=== PATIENT | female | born 1975 | race Caucasian/White ===

== ENCOUNTER → 2018-01-03 | Outpatient (CLI) | payer OTHER ==
[2016-02-18 05:00] VITALS: BMI 4747.1
[~2018-01-03] MED LIST: AMOX-556 PO; AMOX-559 PO; CYA1000 PO; DOCU240C67 PO; FLUT16SP19 NS; IBUP800T37 PO; LEVO1TAB29 PO; LEVO1TAB48 PO; LORA-802 PO; Lanolin TP; MECL-81 PO; ONDA8TAB98 PO; PER PO; PREN-127 PO
[2018-01-03 13:43] LABS: PLATELET COUNT, AUTOMATED 222 K/uL (150-450)
[2018-01-03 14:05] LABS: LDL CHOLESTEROL 78 mg/dl
== END ==
LOC: LAB 13:10
PROVIDERS: ATTEND Emergency Medicine
DX: R20.8 Other disturbances of skin sensation (principal); E66.9 Obesity, unspecified
CPT/HCPCS: 36415; 82040; 82247; 82310; 82374; 82435; 82465; 82565; 82607; 82947; 83036; 83718; 84075; 84132; 84155; 84295; 84443; 84450; 84460; 84478; 84520; 85025

== ENCOUNTER → 2018-01-27 | Outpatient (CLI) | payer OTHER ==
[2016-02-18 05:00] VITALS: BMI 4747.1
--- NOTE | 2018-01-27 16:00 | RADIOLOGY IMAGING REPORT ---
FACILITY: [facility] PATIENT NAME: ANNABELLA SWEENEY : [id number] MR: [id number] V: [id number] EXAM DATE: ORDERING PHYSICIAN: MANISH SANCHEZ TECHNOLOGIST: Su Peterson PROCEDURE:BILATERAL DIGITAL SCREENING MAMMOGRAM WITH CAD ASSISTED INTERPRETATION & 3D TOMOSYNTHESIS COMPARISON:None. INDICATIONS:Screening FINDINGS: There are no prior mammograms available for comparison. The breasts are heterogeneously dense which can obscure small masses. There is a focal asymmetry in the lateral portion of the Left breast in the posterior 1/3 for which Spot compression view is recommended. DIAGNOSTIC CATEGORY 0--INCOMPLETE: NEED ADDITIONAL IMAGING EVALUATION. RECOMMENDATIONS: ADDITIONAL MAMMOGRAPHIC VIEWS REQUIRED: LEFT BREAST. IMPRESSION: BIRADS 0: Incomplete. Additional views of Left breast recommended as described. Dictated by: Evangelina Quinn M.D. on 01/27/2018 at 15:13 Transcribed by: LUCILA on 01/27/2018 at 15:25 Approved by: Evangelina Quinn M.D. on 01/27/2018 at 15:59 [facility]
== END ==
LOC: MAMO 01:28
PROVIDERS: ATTEND Emergency Medicine
DX: R92.8 Other abnormal and inconclusive findings on diagnostic imaging of breast (principal); Z80.3 Family history of malignant neoplasm of breast
CPT/HCPCS: 77063; 77067

== ENCOUNTER → 2018-02-15 | Outpatient (CLI) | payer OTHER ==
[2016-02-18 05:00] VITALS: BMI 4747.1
--- NOTE | 2018-02-16 15:16 | RADIOLOGY IMAGING REPORT ---
[place] [facility] [place] NAME: ANNABELLA SWEENEY : [id number] MR: [id number] V: [id number] EXAM DATE: ORDERING PHYSICIAN: MANISH SANCHEZ TECHNOLOGIST: Su Peterson PROCEDURE:LEFT DIGITAL DIAGNOSTIC MAMMOGRAM WITH CAD ASSISTED INTERPRETATION & 3D TOMOSYNTHESIS COMPARISON:Prior mammograms 01/27/18. INDICATIONS:FURTHER EVAL FINDINGS: The patient returns for mediolateral view of the Left breast and Spot compression views in the Left CC projection. The area of focal asymmetry in the lateral portion of the Left breast appeared compressible on the Spot compression view. This apparently represented a summation shadow. DIAGNOSTIC CATEGORY 2--BENIGN FINDING. RECOMMENDATIONS: ROUTINE MAMMOGRAM AND CLINICAL EVALUATION. IMPRESSION: BIRADS 2: Benign finding. No significant abnormality is seen. Dictated by: Evangelina Quinn M.D. on 02/15/2018 at 16:54 Transcribed by: LUCILA on 02/16/2018 at 8:28 Approved by: Evangelina Quinn M.D. on 02/16/2018 at 15:15 [facility]
== END ==
LOC: MAMO 00:58
PROVIDERS: ATTEND Emergency Medicine
DX: Z12.31 Encounter for screening mammogram for malignant neoplasm of breast (principal)
CPT/HCPCS: 77061; 77065